=== PATIENT | female | born 1975 | race Caucasian/White ===

== ENCOUNTER 2020-08-23 16:28 | Observation (INO) | payer BC ==
[~2020-08-23] VITALS: Ht 149.9 cm; Wt 68.0 kg
--- NOTE | 2020-08-23 17:34 | EKG ---
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
--- NOTE | 2020-08-23 17:36 | RAD ---
Exam: Chest one view INDICATION: Dizziness TECHNIQUE: Frontal view of the chest Comparisons: None FINDINGS: The cardiomediastinal silhouette and pulmonary vessels are within normal limits. The lung and pleural spaces are clear. IMPRESSION: No acute cardiopulmonary process. Electronically signed by: Allegra Asif MD (08/23/2020 5:33 PM) CASSIE
--- NOTE | 2020-08-23 17:53 | PHYS DOC ---
Past History Past Medical History: Diabetes, GERD, Hypertension (CELESTE AREVALO APRN) Past Surgical History: Hysterectomy, Tubal ligation, Other Additional Past Surgical Histo: ESOPHAGUS STRECHED; 3 TEETH REMOVED (CELESTE AREVALO APRN) Smoking: Non-smoker Alcohol Use: None Drug Use: None (CELESTE AREVALO APRN) General Adult EDM: Chief Complaint: DIZZY/LIGHT HEADED HPI: HPI: Patient is a 45-year-old female who presents to the emergency department with complaints of intermittent dizziness that is worse with position changes that began this morning. Patient denies any syncopal episodes, chest pain, shortness of breath, nausea, vomiting, diaphoresis, headache, vision changes, fever, abdominal pain, or diarrhea. She states she has been having difficulty swallowing for the last 2 to 3 days. She was seen by her cement based materials pump tender this morning and is scheduled to have her esophagus stretched again towards the end of the month. Patient states she had her esophagus stretched over a year ago but thinks that needs to be stretched again. Patient reports that during the episodes of dizziness she feels like her heart is racing. She denies any numbness, tingling, weakness, or falls. Patient states that the dizzy sensation is like the room is spinning. She currently denies any pain. (CELESTE AREVALO APRN) Review of Systems: Review of Systems: Constitutional: Denies fever or chills Eyes: Denies change in visual acuity HENT: Denies nasal congestion or sore throat Respiratory: Denies cough or shortness of breath Cardiovascular: Denies chest pain or edema GI: Denies abdominal pain, nausea, vomiting, or diarrhea : Denies dysuria Musculoskeletal: Denies back pain or joint pain Integument: Denies rash Neurologic: See HPI Endocrine: Reports controlled blood sugars Psychiatric: Denies depression or anxiety (CELESTE AREVALO APRN) Allergies: Allergies: Allergies Coded Allergies Type Severity Reaction Last Updated Verified amoxicillin Allergy Unknown 08/23/20 Yes clavulanic acid Allergy Unknown 08/23/20 Yes erythromycin base Allergy Unknown 08/23/20 Yes latex Allergy Unknown 08/23/20 Yes (CELESTE AREVALO APRN) Physical Exam: PE: Constitutional: Well developed, well nourished, no acute distress, non-toxic appearance. [] HENT: Normocephalic, atraumatic, bilateral external ears normal, nose normal. [] Eyes: PERRLA, EOMI, conjunctiva normal, no discharge. [] Neck: Normal range of motion, no stridor. [] Cardiovascular:Heart rate regular rhythm Lungs & Thorax: Respirations even and unlabored, no retractions, no respiratory distress Abdomen: soft, no tenderness Skin: Warm, dry, no erythema, no rash. [] Extremities: No cyanosis, ROM intact, no edema. [] Neurologic: Alert and oriented X 3, no focal deficits noted. [] Psychologic: Affect normal, judgement normal, mood normal. [] (CELESTE AREVALO APRN) Current Patient Data: Vital Signs: Vital Signs Date Time Temp Pulse Resp B/P (MAP) Pulse Ox O2 Delivery O2 Flow Rate FiO2 08/23/20 17:33 96 12 142/85 (104) 99 Room Air 08/23/20 16:42 98.6 (CELESTE AREVALO APRN) EKG: EK-sinus rhythm, rate 87, with T wave inversion consider anterolateral and inferolateral ischemia or left ventricular strain, no STEMI read by Dr. Martinez 1936-sinus rhythm, rate 91, no acute changes from previous EKG, no STEMI, read by Dr. Sullivan (CELESTE AREVALO APRN) EKG: Concern for anterolateral ischemia on ekg, no stemi, no prior ekg in emr for comparison. I recommended admission for cardiology evaluation. (FELIBERTO MARTINEZ DO) Radiology/Procedures: Radiology/Procedures: PROCEDURE: PORTABLE CHEST 1V Exam: Chest one view INDICATION: Dizziness TECHNIQUE: Frontal view of the chest Comparisons: None FINDINGS: The cardiomediastinal silhouette and pulmonary vessels are within normal limits. The lung and pleural spaces are clear. IMPRESSION: No acute cardiopulmonary process.[] PROCEDURE: PORTABLE CHEST 1V Exam: Chest one view INDICATION: Dizziness TECHNIQUE: Frontal view of the chest Comparisons: None FINDINGS: The cardiomediastinal silhouette and pulmonary vessels are within normal limits. The lung and pleural spaces are clear. IMPRESSION: No acute cardiopulmonary process. (CELESTE AREVALO APRN) Heart Score: HEART Score for Chest Pain: HEART Score for Chest Pain Response (Comments) Value History Moderately Suspicious 1 ECG Nonspecific Repolarizatio 1 Age >45 - < 65 1 Risk Factors 1 or 2 Risk Factors 1 Troponin < Normal Limit 0 Total 4 Risk Factors: Risk Factors: DM, Current or recent (<one month) smoker, HTN, HLP, family history of CAD, obesity. Risk Scores: Score 0 - 3: 2.5% MACE over next 6 weeks - Discharge Home Score 4 - 6: 20.3% MACE over next 6 weeks - Admit for Clinical Observation Score 7 - 10: 72.7% MACE over next 6 weeks - Early Invasive Strategies (CELESTE AREVALO APRN) Course & Med Decision Making: Course & Med Decision Making Pertinent Labs and Imaging studies reviewed. (See chart for details) 1913-spoke with Dr. Smith who is the admitting physician, and care was assumed following discussion of patient. Will admit the patient to med telemetry for dizziness, dehydration, and abnormal EKG Patient's vital signs stable. Patient remains afebrile, appears nontoxic, respirations even and unlabored. Patient will be admitted to the med/telemetry floor. Patient's case and plan of care also discussed with Dr. Martinez [] (CELESTE AREVALO APRN) Dragon Disclaimer: Dragon Disclaimer: This electronic medical record was generated, in whole or in part, using a voice recognition dictation system. (CELESTE AREVALO APRN) Departure Departure: Impression: Primary Impression: Dizziness Additional Impressions: Dehydration Abnormal EKG Disposition: ADMITTED INPT THIS HOSP Admitting Physician: aDvid Smith (CELESTE AREVALO APRN) Condition: STABLE Referrals: PCP,NO (PCP) Dragon Disclaimer This chart was dictated in whole or in part using Voice Recognition software in a busy, high-work load, and often noisy Emergency Department environment. It may contain unintended and wholly unrecognized errors or omissions. (CHRISTY SULLIVAN MD) Attending Co-Sign Attending Co-Sign The patient was seen and interviewed as well as examined at the bedside. The chart was reviewed. The case was discussed. Agree with the plan of care. (CHRISTY SULLIVAN MD) CELESTE AREVALO APRN Aug 23, 2020 17:53 CHRISTY SULLIVAN MD Aug 24, 2020 05:46 FELIBERTO MARTINEZ DO Aug 24, 2020 06:24
[2020-08-23 18:03] LABS: BASO % 1 % (0-3); EOS # 0.1 x10^3/uL (0.0-0.7); EOS % 1 % (0-3); HEMATOCRIT 43.1 % (36.0-47.0); HEMOGLOBIN 14.2 g/dL (12.0-15.5); LYMPH # 1.8 x10^3/uL (1.0-4.8); LYMPH % 29 % (24-48); MEAN CORPUSCULAR HEMOGLOBIN 33 pg (25-35); MEAN CORPUSCULAR HGB CONC 33 g/dL (31-37); MEAN CORPUSCULAR VOLUME 100 fL (79-100); MONO # 0.5 x10^3/uL (0.0-1.1); MONO % 8 % (0-9); NEUT % 62 % (31-73); PLATELET COUNT 307 x10^3/uL (140-400); RED BLOOD COUNT 4.33 x10^6/uL (3.50-5.40); RED CELL DISTRIBUTION WIDTH 14.5 % (11.5-14.5); WHITE BLOOD COUNT 6.4 x10^3/uL (4.0-11.0)
[2020-08-23 18:11] LABS: CALCIUM 9.2 mg/dL (8.5-10.1); CREATININE 0.8 mg/dL (0.6-1.0); GFR 77.6; POTASSIUM 3.3 mmol/L (3.5-5.1)
[2020-08-23 18:18] LABS: ALBUMIN 3.7 g/dL (3.4-5.0); ALBUMIN/GLOBULIN RATIO 0.8 (1.0-1.7); MAGNESIUM 2.2 mg/dL (1.8-2.4); TOTAL BILIRUBIN 0.3 mg/dL (0.2-1.0); TOTAL PROTEIN 8.4 g/dL (6.4-8.2)
[2020-08-23 18:21] LABS: BILIRUBIN,URINE MOD (NEG); CLARITY,URINE CLEAR; COLOR,URINE YELLOW; GLUCOSE,URINE NEG (NEG)
[2020-08-23 18:22] LABS: BACTERIA,URINE FEW /HPF (0-FEW); NITRITE,URINE NEG (NEG); SQUAMOUS EPITHELIAL CELL,UR MOD /LPF; UROBILINOGEN,URINE 0.2 mg/dL (0.2 mg/dL)
[2020-08-23] MEDS ORDERED: IV NORMAL SALINE 1,000ML 1,000 ML IV ONE (18:30)
--- NOTE | 2020-08-23 22:02 | NUR ---
The patient, JHON BAUER, 45 y/o, F admitted by Dr. Smith, was given written information regarding hospital policies, unit procedures and contact persons. Oriented to room, call light. Valuables were checked and left with pt.
[2020-08-23 22:39] LABS: U PREG PATIENT NEGATIVE (NEG)
[2020-08-23 22:42] LABS: AMPHETAMINE/METHAMPHETAMINE NEG (NEG); BARBITURATES NEG (NEG); BENZODIAZEPINES NEG (NEG); CANNABINOIDS NEG (NEG); COCAINE NEG (NEG); METHADONE NEG (NEG); OPIATES NEG (NEG); PHENCYCLIDINE NEG (NEG)
[2020-08-23] MEDS ORDERED: CARV3.1230 PO (22:54)
[2020-08-23] MEDS ORDERED: ACET325T9 PO (22:54)
[2020-08-23] MEDS ORDERED: allegra (22:54)
[2020-08-23] MEDS ORDERED: SIMV40TA18 PO (22:54)
[2020-08-23] MEDS ORDERED: QUET300T5 PO (22:54)
[2020-08-23] MEDS ORDERED: TRAM50TA PO (22:54)
[2020-08-23] MEDS ORDERED: FAMO-63 PO (22:54)
[2020-08-23] MEDS ORDERED: traMADol 50 MG TABLET PO PRN (23:15)
[2020-08-23 23:26] VITALS: BP 150/79
[2020-08-23] MEDS: QUEtiapine 100 MG TABLET. PO SCH (23:39)
[2020-08-23] MEDS: SIMVASTATIN 40 MG TABLET. PO SCH (23:40)
[2020-08-23] MEDS: FAMOTIDINE 20 MG TABLET PO SCH (23:40)
[2020-08-23] MEDS: IV 1/2 NORMAL SALINE 1,000 ML IV SCH (23:41)
[2020-08-24] VITALS (7 sets, daily range): BP systolic 115–149; BP diastolic 72–96
--- NOTE | 2020-08-24 00:09 | EKG ---
[address] [address] Test Date: 2020-08-23 Test Time: 19:36:03 Pat Name: J[facility]ON 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
--- NOTE | 2020-08-24 05:58 | NUR ---
Nursing note: Pt up ad randall, independent with IV pole. Pt heart rate gets up to 120-130s while ambulating. Pt states she feels her "heart racing" when up to bathroom. T wave abnormality consistent through shift, PACs infrequent (<5/min) but present, cardiology consult called for routine assessment. Pt reported pain near xyphoid process, felt it was similar to her usual esophageal pain. Pt currently up to bathroom, has rested comfortably through shift.
[2020-08-24] MEDS: ACETAMINOPHEN 325 MG TABLET PO PRN (06:10)
[2020-08-24] MEDS: IV 1/2 NORMAL SALINE 1,000 ML IV SCH ×2 (07:15→15:15)
[2020-08-24] MEDS: FAMOTIDINE 20 MG TABLET PO SCH ×2 (08:50→20:30)
[2020-08-24] MEDS: CARVEDILOL 3.125 MG TABLET PO SCH ×2 (08:50→17:18)
[2020-08-24] MEDS ORDERED: FAMOTIDINE 20 MG TABLET PO SCH (09:00)
[2020-08-24] MEDS ORDERED: MECLIZINE 12.5 MG TABLET. PO PRN (10:15)
[2020-08-24] MEDS ORDERED: ELECTROLYTE (NON-ICU) PROTOCOL. MC PRN (18:00)
--- NOTE | 2020-08-24 18:42 | HP ---
ADMIT DATE: 08/23/2020 HISTORY OF PRESENT ILLNESS: A 45-year-old female came in through the Emergency Room with intermittent dizziness and getting worse with change in position, although in actuality, the patient had orthostatic hypotension and ____ having some difficulty with some other factors. She is having problems with swallowing for the last 2-3 days now. She has strictures in her esophagus and is due to have that dilated by her greige goods marker. The patient, when she has these dizzy feelings, feels like her heart is racing, but I think this is related to her orthostasis as it does drop about 30 points and probably is trying to compensate for that. She is also very dehydrated and we are trying to give her additional IV fluids because she cannot drink very much because of the strictures in her esophagus. She is even having trouble swallowing. PAST MEDICAL HISTORY: Cardiac disorders, hypercholesterolemia, hypertension, esophageal disorders, esophageal stricture dilatation time 6, abdominal surgery, cholecystectomy, tubal ligation, hysterectomy, endocrine, diabetes, psychiatric problems, depression. Influenza up-to-date TMJ. FAMILY HISTORY: Positive for esophageal cancer and stroke. ALLERGIES: PENICILLIN, AUGMENTIN, ERYTHROMYCIN AND LATEX. SOCIAL HISTORY: The patient has given up smoking. Denies alcohol or drug use. The patient otherwise is a full code. MEDICATIONS: Meclizine, Coreg 3.125, Seroquel 300, Zocor 40, famotidine, she says she takes up to 6 tablets or 8 tablets a day, which can be understandable with her reflux. I am not sure why she does not take PPIs, tramadol and acetaminophen. REVIEW OF SYSTEMS: As noted in the HPI difficulty in swallowing and decreased on her fluids, lightheadedness which she calls dizziness when she starts to walk around. She denies abdominal pain per se, nausea or vomiting, although she does regurgitate when she tries to eat or drink too much fluid at a time. Otherwise, neurologically intact. No problems with urination. PHYSICAL EXAMINATION: GENERAL: Pleasant white female, moderate amount of distress. VITAL SIGNS: Blood pressure 150/80, respiratory rate 20, pulse 80, afebrile, oxygen saturation good. HEENT: The patient's head was atraumatic, normocephalic. Eyes: PERRLA without jaundice. The mouth and throat were normal. NECK: Supple without JVD or thyromegaly. LUNGS: Diminished throughout, but basically clear. CARDIOVASCULAR: Regular sinus rhythm. ABDOMEN: Soft, nontender. No rebound or guarding. Positive bowel sounds. No hepatosplenomegaly noted. EXTREMITIES: No clubbing, cyanosis or edema. NEUROLOGIC: The patient is alert and oriented x 3. LABORATORY DATA: CBC was normal. Chemistries were basically normal. Her blood sugars if anything around the low side. Cardiac enzymes negative. Potassium was slightly on the low side. Urine specific gravity 1.030 consistent with her problem with dehydration. IMPRESSION: Orthostatic hypotension, dehydration, dysphagia secondary to esophageal strictures and hypokalemia. PLAN: Continue with IV fluids and see if we cannot minimize this orthostatic drop and try to get her to increase fluids. GRAHAM NIETO MD DR: BOLA/amarilis JOB#: [id number] / [id number]
[2020-08-24] MEDS: QUEtiapine 100 MG TABLET. PO SCH (20:29)
[2020-08-24] MEDS: SIMVASTATIN 40 MG TABLET. PO SCH (20:30)
[2020-08-24] MEDS: ONDANSETRON ODT 4 MG TAB.RAPDIS PO PRN (20:37)
[2020-08-24] MEDS ORDERED: SIMVASTATIN 40 MG TABLET. PO SCH (21:00)
[2020-08-24] MEDS ORDERED: NON FORMULARY ITEM (Quetiapine Fumarate (Seroquel) 1 TAB) PO SCH (21:00)
[2020-08-25] MEDS: IV 1/2 NORMAL SALINE 1,000 ML IV SCH (01:24)
--- NOTE | 2020-08-25 05:29 | NUR ---
Nursing note: Pt rested comfortably in bed. Up to toilet through night. No c/o pain.
[2020-08-25 05:45] VITALS: BP 125/86
[2020-08-25 07:57] LABS: BASO % 1 % (0-3); EOS # 0.1 x10^3/uL (0.0-0.7); EOS % 1 % (0-3); LYMPH # 1.7 x10^3/uL (1.0-4.8); LYMPH % 35 % (24-48); MEAN CORPUSCULAR HEMOGLOBIN 33 pg (25-35); MEAN CORPUSCULAR HGB CONC 33 g/dL (31-37); MEAN CORPUSCULAR VOLUME 99 fL (79-100); MONO # 0.4 x10^3/uL (0.0-1.1); MONO % 7 % (0-9); NEUT # 2.7 x10^3uL (1.8-7.7); NEUT % 56 % (31-73); PLATELET COUNT 253 x10^3/uL (140-400); RED BLOOD COUNT 3.92 x10^6/uL (3.50-5.40); RED CELL DISTRIBUTION WIDTH 14.6 % (11.5-14.5); WHITE BLOOD COUNT 4.8 x10^3/uL (4.0-11.0)
[2020-08-25 08:03] LABS: CALCIUM 8.2 mg/dL (8.5-10.1); CREATININE 0.9 mg/dL (0.6-1.0); GFR 67.7
[2020-08-25 08:06] LABS: POTASSIUM 2.8 mmol/L (3.5-5.1)
[2020-08-25] MEDS: FAMOTIDINE 20 MG TABLET PO SCH (08:50)
[2020-08-25] MEDS: CARVEDILOL 3.125 MG TABLET PO SCH (08:50)
[2020-08-25] MEDS: POTASSIUM CHLORIDE 10MEQ 100 ML IV SCH ×4 (08:50→12:05)
[2020-08-25] MEDS: ACETAMINOPHEN 325 MG TABLET PO PRN (08:57)
[2020-08-25 11:05] VITALS: BP 141/85
[2020-08-25] MEDS ORDERED: POTASSIUM CHLORIDE 20 MEQ TABLET.ER. PO ONE (12:15)
[2020-08-25] MEDS: ONDANSETRON ODT 4 MG TAB.RAPDIS PO PRN (13:20)
[2020-08-25 15:05] LABS: CALCIUM 8.5 mg/dL (8.5-10.1); CREATININE 0.9 mg/dL (0.6-1.0); GFR 67.7; POTASSIUM 3.4 mmol/L (3.5-5.1)
[2020-08-25 15:22] VITALS: BP 139/82
[2020-08-26 02:13] LABS: HEMOGLOBIN A1C 5.1 % (4.8-5.6)
== END 2020-08-25 16:17 | disposition home or self-care (01) ==
LOC: ER 16:28 → INTOOBSV 19:14 → 1 SOUTH 19:14
PROVIDERS: ADMIT Family Medicine; ATTEND Family Medicine
DX: I95.1 Orthostatic hypotension (principal); E87.6 Hypokalemia; E86.0 Dehydration; E78.00 Pure hypercholesterolemia, unspecified; K22.2 Esophageal obstruction; E11.9 Type 2 diabetes mellitus without complications; E78.5 Hyperlipidemia, unspecified; I10 Essential (primary) hypertension; R94.31 Abnormal electrocardiogram [ECG] [EKG]; R13.10 Dysphagia, unspecified; Z87.891 Personal history of nicotine dependence; Z90.710 Acquired absence of both cervix and uterus; Z98.51 Tubal ligation status; Z98.890 Other specified postprocedural states; Z79.899 Other long term (current) drug therapy
CPT/HCPCS: 36415; 71045; 80048; 80053; 80307; 81001; 81025; 82550; 82947; 83036; 83735; 84484; 85025; 93005; 96361; 96365; 96366; 99285; G0378; J3480; J7030; Q0162; G0379

== ENCOUNTER → 2022-02-06 | Outpatient (CLI) | payer BC, MEDICAID ==
[~2022-02-06] MED LIST: ACET325T9 PO; CARV3.1230 PO; FAMO-63 PO; QUET300T5 PO; SIMV40TA18 PO; TRAM50TA PO; allegra
--- NOTE | 2022-02-06 14:27 | RAD ---
History: Reason: bloating, diabetic, nausea / Spl. Instructions: / History: Procedure: The patient ate a standard meal containing 2.1 mCi Tc-99m sulfur colloid. Scintigraphic images of the abdomen were obtained. Counts were obtained. Findings: Retention percentages are as follows: 1 Hr: 84 2 Hr:65 3 Hr:47 4 Hr:30 Normal Retention Percentage Range is as Follows: 1 Hr: 35-91% 2 Hr: 2.7-60% 3 Hr: 0.5-28% 4 Hr: 0-10% Impression: Time to half emptying for solids is estimated at 175 minutes which is delayed. Can be seen with caus es such as gastroparesis. Electronically signed by: Harris Garcia MD (02/06/2022 2:25 PM) [id number]
== END ==
LOC: NM 07:37
PROVIDERS: ATTEND Physician Assistant
DX: R14.0 Abdominal distension (gaseous) (principal)
CPT/HCPCS: 78264; A9541